=== PATIENT | female | born 1980 | race Caucasian/White ===

== ENCOUNTER 2019-05-09 11:11 | Emergency (ER) | payer OTHER ==
--- NOTE | 2019-05-09 11:36 | ED ---
Abdominal Pain/Female - HPI Summary HPI Summary: Pt. is a 39 y.o female who presents to the ER for constipation x 3 weeks. Pt. notes intermittent cramping and bloating. Pt. notes she is still have small, infrequent bowel movements. She denies fever, vomiting, urinary sxs. Pt. denies change of , stating she just had her normal period and uses protection. Pt. denies past hx. Pt. states she has tried OTC senna without much improvement. Sx hx of c section. Pt. states she had similar sxs a few years ago and was rx "prescription strength on senna" that worked for her. Pt. requesting this rx today. Sxs are mild in severity. No current modifying factors. Pt. denies narcotic use and denies any other OTC medications. - History of Current Complaint Chief Complaint: EDConstipation Stated Complaint: LOW ABD PAIN PER PT Time Seen by Provider: 05/09/19 11:33 Hx Obtained From: Patient Pain Intensity: 4 Allergies/Adverse Reactions: Allergies Allergy/AdvReac Type Severity Reaction Status Date / Time Penicillins Allergy Rash Verified 05/09/19 11:31 Sulfa (Sulfonamide Allergy Dizziness Verified 05/09/19 11:31 Antibiotics) PMH/Surg Hx/FS Hx/Imm Hx Previously Healthy: Yes Psychiatric History: Denies: Hx Anxiety, Hx Attention Deficit Hyperactivity Disorder, Hx Eating Disorder, Hx Depression, Hx Panic Disorder, Hx Post Traumatic Stress Disorder, Hx Inpatient Treatment, Hx Community Mental Health Tx, Hx Schizophrenia, Hx Bipolar Disorder, Hx Suicide Attempt, Hx of Violent Episodes Against Others, Hx Substance Abuse, Other Psychiatric Issues/Disorders Infectious Disease History: No Infectious Disease History: Denies: Traveled Outside the [place] in Last 30 Days - Family History Known Family History: Positive: Non-Contributory - Social History Occupation: Unemployed Lives: Alone Alcohol Use: None Substance Use Type: Reports: None Substance Use Comment - Amount & Last Used: Patient states "none"; however, her chart lists marijuana & cig until pregn Type: Cigarettes Amount Used/How Often: 1/2 pack/day Length of Time of Smoking/Using Tobacco: 5 yrs Have You Smoked in the Last Year: Yes Review of Systems Constitutional: Negative Negative: Fever Cardiovascular: Negative Respiratory: Negative Positive: Abdominal Pain, Other - diarrhea. Negative: Vomiting, Diarrhea, Nausea Genitourinary: Negative All Other Systems Reviewed And Are Negative: Yes Physical Exam Vital Signs On Initial Exam: Initial Vitals Temp Pulse Resp BP Pulse Ox 99.4 F 93 16 110/71 99 05/09/19 11:29 05/09/19 11:29 05/09/19 11:29 05/09/19 11:29 05/09/19 11:29 Procedures - Sedation Patient Received Moderate/Deep Sedation with Procedure: No Diagnostics - Vital Signs Vital Signs Temp Pulse Resp BP Pulse Ox 05/09/19 11:29 99.4 F 93 16 110/71 99 - Laboratory Lab Statement: Any lab studies that have been ordered have been reviewed, and results considered in the medical decision making process. Abdominal Pain Fem Course/Dx - Course Course Of Treatment: Pt. with complaints of constipation x 2 weeks. Pt. notes she is still having small bowel movements and is passing gas. No vomiting. NO hx of bowel obstruction. Benign abd. exam. Pt. requesting rx for senna. Magesium citrate rx as well. Advised to increase fluids and fiber in diet. To call [facility] for close f.u. Advised to return to ER if sxs persist, increased pain, vomiting, or if concerned. Pt. understands and agrees with plan. - Diagnoses Differential Diagnosis: Positive: Bowel Obstruction, Constipation, Irritable Bowel Syndrome Provider Diagnoses: Constipation Discharge ED - Sign-Out/Discharge Documenting (check all that apply): Patient Departure - Discharge Plan Condition: Good Disposition: HOME Prescriptions: Magnesium CITRATE* [Citrate of Magnesia*] 300 ml PO SEE INSTRUCTIONS PRN #1 btl PRN Reason: Constipation Sennosides/Docusate Sodium [Senna-S Tablet] 1 each PO BID #14 tablet Patient Education Materials: Constipation (ED), High Fiber Diet (ED) Referrals: [facility] [Outside] Additional Instructions: Call the [facility] Saturday for a close follow up appointment Medication as directed Increase fluids Increase fiber in diet Return to ER for new or worsening symptoms - Billing Disposition and Condition Condition: GOOD Disposition: Home - Attestation Statements Provider Attestation: I was available for consultation for this patient. I did not evaluate the patient, or participate in any medical decision making or disposition decisions unless I am specifically named in the chart as having consulted on the patient. If I have consulted on the patient, please see my own ED note on the patient encounter. Maile Bernard MD
[2019-05-09 12:00] VITALS: BP 99/54
== END 2019-05-09 12:07 | disposition home or self-care (01) ==
LOC: ED 11:11
DX: K59.00 Constipation, unspecified (principal); F17.210 Nicotine dependence, cigarettes, uncomplicated; Z88.0 Allergy status to penicillin; Z88.2 Allergy status to sulfonamides
CPT/HCPCS: 99281

== ENCOUNTER 2019-05-19 10:42 | Emergency (ER) | payer OTHER ==
--- NOTE | 2019-05-19 11:09 | ED ---
Abdominal Pain/Female - HPI Summary HPI Summary: Patient is a 39 y/o F presenting to the ED for a chief complaint of diffuse non- radiating abdominal pain for the last several weeks. Patient notes abdominal pain that she rates as 10/10 in severity during triage, abdominal bloating, and constipation. She also reports one episode of having blood in the stool. She was previously seen at [facility] on 05/09/19 for similar symptoms and prescribed Senna for 7 days. Patient has not had a bowel movement in the last 2 days since completing the 7-day course of Senna. Patient now believes she has hemorrhoids. Patient denies fever or chills. Patient denies any aggravating or alleviating symptoms. Patient denies having any prior bowel problems, PMHx, PSHx, or FMHx. Patient has a follow up appointment made through [facility] during her last visit to [facility] for 05/27/19. - History of Current Complaint Chief Complaint: EDAbdPain Stated Complaint: CONSTIPATION PROBLEMS PER PT Time Seen by Provider: 05/19/19 10:59 Hx Obtained From: Patient Onset/Duration: Sudden Onset, Still Present Timing: Constant Severity Initially: Severe Severity Currently: Severe Pain Intensity: 10 Pain Scale Used: 0-10 Numeric Location: Diffuse Radiates: No Aggravating Factor(s): Nothing Alleviating Factor(s): Nothing Associated Signs and Symptoms: Positive: Constipation, Blood in Stool, Other: - Positive abdominal bloating; negative chills. Negative: Fever Allergies/Adverse Reactions: Allergies Allergy/AdvReac Type Severity Reaction Status Date / Time Penicillins Allergy Rash Verified 05/19/19 10:49 Sulfa (Sulfonamide Allergy Dizziness Verified 05/19/19 10:49 Antibiotics) PMH/Surg Hx/FS Hx/Imm Hx Previously Healthy: Yes Endocrine/Hematology History: Denies: Hx Diabetes Cardiovascular History: Denies: Hx Hypercholesterolemia, Hx Hypertension Sensory History: Denies: Hx Legally Blind, Hx Deafness Opthamlomology History: Denies: Hx Legally Blind EENT History: Denies: Hx Deafness Psychiatric History: Denies: Hx Anxiety, Hx Attention Deficit Hyperactivity Disorder, Hx Eating Disorder, Hx Depression, Hx Panic Disorder, Hx Post Traumatic Stress Disorder, Hx Inpatient Treatment, Hx Community Mental Health Tx, Hx Schizophrenia, Hx Bipolar Disorder, Hx Suicide Attempt, Hx of Violent Episodes Against Others, Hx Substance Abuse, Other Psychiatric Issues/Disorders - Surgical History Surgical History: None Surgery Procedure, Year, and Place: None Infectious Disease History: No Infectious Disease History: Denies: Traveled Outside the [place] in Last 30 Days - Family History Known Family History: Negative: Diabetes - Social History Occupation: Unemployed Lives: With Family Alcohol Use: None Hx Substance Use: No Substance Use Type: Reports: None Substance Use Comment - Amount & Last Used: Patient states "none"; however, her chart lists marijuana & cig until pregn Hx Tobacco Use: No Smoking Status (MU): Never Smoked Tobacco Type: Cigarettes Amount Used/How Often: 1/2 pack/day Length of Time of Smoking/Using Tobacco: 5 yrs Have You Smoked in the Last Year: Yes Review of Systems Negative: Fever, Chills Positive: Abdominal Pain - Diffuse, Other - Positive constipation, abdominal bloating, one episode of blood in stool Positive: Other - Positive hemorrhoids All Other Systems Reviewed And Are Negative: Yes Physical Exam - Summary Physical Exam Summary: VITAL SIGNS: Reviewed. GENERAL: Patient is a well-developed and nourished female who is lying comfortable in the stretcher. Patient is not in any acute respiratory distress. HEAD AND FACE: Normocephalic and atraumatic. EYES: PERRLA, EOMI x 2, No injected conjunctiva. EARS: Hearing grossly intact. Ear canals and tympanic membranes are WNL. MOUTH: Oropharynx within normal limits. NECK: Supple, trachea is midline, no adenopathy, no JVD. CHEST: Symmetric, no tenderness at palpation. LUNGS: Clear to auscultation bilaterally. No wheezing or crackles. CVS: RRR, S1 and S2 present, no murmurs or gallops appreciated. ABDOMEN: Soft. Positive bowel sounds. No rebound, no guarding, and no masses palpated. No abdominal bruit or pulsations.Abdominal distention, slight tenderness of the lower abdomen. EXTREMITIES: FROM in all major joints, no edema, no cyanosis or clubbing. NEURO: Alert and oriented x 3. No acute neurological deficits. Speech is normal. SKIN: Dry and warm. RECTAL: small external hemorrhoid, no gross blood, no masses, normal sphincter tone. Triage Information Reviewed: Yes Vital Signs On Initial Exam: Initial Vitals Temp Pulse Resp BP Pulse Ox 98.9 F 102 16 150/98 94 05/19/19 10:46 05/19/19 10:46 05/19/19 10:46 05/19/19 10:46 05/19/19 10:46 Vital Signs Reviewed: Yes Procedures - Sedation Patient Received Moderate/Deep Sedation with Procedure: No Diagnostics - Vital Signs Vital Signs Temp Pulse Resp BP Pulse Ox 05/19/19 10:46 98.9 F 102 16 150/98 94 - Laboratory Result Diagrams: 05/19/19 11:43 05/19/19 11:44 Lab Statement: Any lab studies that have been ordered have been reviewed, and results considered in the medical decision making process. - CT Abdomen/Pelvis CT CT Interpretation Completed By: Radiologist Summary of CT Findings: Abdomen/Pelvis CT IMPRESSION: 1. NO EVIDENCE FOR ACUTE FINDING. 2. FINDINGS CONSISTENT WITH OLD GRANULOMATOUS DISEASE. Reviewed by Dr. Dalton. Abdominal Pain Fem Course/Dx - Course Course Of Treatment: The patient is a 39-year-old female who presents to the emergency department with a chief complaint of abdominal pain, chronic constipation. She thinks that she has an intermittent bowel obstruction. Blood test results are without any significant abnormality except for glucose 101. In the ED course the patient was given IV fluids. The pelvic CT impression: no evidence for acute finding. Findings consistent with old granulomatous disease. At this time the patient seems to be comfortable. Therefore, she will be discharged home with a prescription for MiraLAX and Colace. She was recommended to follow with the primary care physician and as needed with a GI doctor. I discussed all the findings and test results including findings of the abdominal and pelvic CT with the patient. Patient was instructed to return to the emergency room immediately if any of the symptoms return or worsen. Plan of care was discussed with the patient who understands and agrees. All questions were answered at the patient's satisfaction. There were no further complaints or concerns. Lung exam before discharge: CTA B/L. Good air exchange. No wheezing or crackles heard. CVS: S1 and S2 present. No murmurs appreciated. Patient is alert and oriented x 3. Patient is hemodynamically stable. Patient will be discharged home to follow up with [facility] in the next 2-3 days. - Diagnoses Provider Diagnoses: Constipation, Lower abdominal pain Discharge ED - Sign-Out/Discharge Documenting (check all that apply): Patient Departure - Discharge - Discharge Plan Condition: Stable Disposition: HOME Prescriptions: Docusate CAP* [Colace Cap*] 100 mg PO BID PRN #14 cap PRN Reason: Constipation Polyethylene Glycol 3350* [Miralax*] 17 gm PO DAILY PRN #12 packet PRN Reason: Constipation Patient Education Materials: Constipation (DC), Abdominal Pain (ED) Referrals: [facility] [Outside] Nikita Costa DO [Doctor of Osteopathy] - Additional Instructions: FOLLOW UP WITH [facility] WITHIN 3 DAYS. RETURN TO THE ED FOR ANY WORSENING OR NEW SYMPTOMS. - Billing Disposition and Condition Condition: STABLE Disposition: Home - Attestation Statements Document Initiated by Scribe: Yes Documenting Scribe: Amanda Goss Provider For Whom Scribe is Documenting (Include Credential): Humberto Dalton MD Scribe Attestation: Amanda Lindsey scribed for Humberto Dalton MD on 05/19/19 at 2056. Scribe Documentation Reviewed: Yes Provider Attestation: The documentation as recorded by the Amanda mitchell accurately reflects the service I personally performed and the decisions made by Humberto velasquez MD Status of Scribe Document: Viewed
[2019-05-19 11:52] LABS: Hematocrit 44 % (35-47); Hemoglobin 14.5 g/dL (12.0-16.0); Mean Corpuscular HGB Conc 33 g/dL (31-36); Mean Corpuscular Hemoglobin 31 pg (27-31); Mean Corpuscular Volume 92 fL (80-97); Mean Platelet Volume 7.2 fL (7.4-10.4); Platelet Count 243 10^3/uL (150-450); Red Blood Count 4.76 10^6 /uL (3.70-4.87); Red Cell Distribution Width 13 % (10-15); White Blood Count 6.7 10^3/uL (3.5-10.8)
[2019-05-19 12:08] LABS: ALT 7 U/L (7-52); AST 12 U/L (13-39); Albumin 4.1 g/dL (3.2-5.2); Albumin/Globulin Ratio 1.4 (1-3); Alkaline Phosphatase 53 U/L (34-104); Anion Gap 6 mmol/L (2-11); BUN/Creatinine Ratio 7.8 (8-20); Blood Urea Nitrogen 5 mg/dL (6-24); C Reactive Protein < 1.00 mg/L (<8.01); CO2 Carbon Dioxide 23 mmol/L (22-32); Calcium 9.2 mg/dL (8.6-10.3); Chloride 110 mmol/L (101-111); EGFR African American 125.7 (>60); EGFR Non-African American 103.9 (>60); Glucose 101 mg/dL (70-100); Potassium 3.7 mmol/L (3.5-5.0); Sodium 139 mmol/L (135-145); Total Protein 7.1 g/dL (6.4-8.9)
[2019-05-19 12:14] LABS: HCG Pregnancy < 0.60 mIU/mL
[2019-05-19 13:41] LABS: ABS Eosinophils 0.1 10^3/ul (0-0.6); ABS Lymphocytes 2.6 10^3/ul (1.0-4.8); ABS Monocytes 0.4 10^3/ul (0-0.8); ABS Neutrophils 3.6 10^3/ul (1.5-7.7); Eosinophil % 1.2 %; Lymphocyte % 38.5 %; Nucleated Red Blood Cells % 0.1
[2019-05-19] MEDS ORDERED: Iohexol 300* (CONTRAST) 10 ML SDV IV ONE (14:05)
[2019-05-19] MEDS ORDERED: NS 0.9% 1000 ML** 1,000 ML IV ONE (14:33)
[2019-05-19 15:46] VITALS: BP 124/66
== END 2019-05-19 15:42 | disposition home or self-care (01) ==
LOC: ED 10:42
DX: K59.00 Constipation, unspecified (principal); R10.30 Lower abdominal pain, unspecified; F17.210 Nicotine dependence, cigarettes, uncomplicated; Z88.0 Allergy status to penicillin; Z88.2 Allergy status to sulfonamides
CPT/HCPCS: 36415; 74177; 80053; 82272; 83605; 83690; 84702; 85025; 86140; 96360; 99282; Q9967

== ENCOUNTER 2019-06-15 21:49 | Emergency (ER) | payer OTHER ==
[2019-06-15 21:54] VITALS: BP 146/95
== END 2019-06-15 22:55 | disposition left against medical advice (07) ==
LOC: ED 21:49
DX: R10.9 Unspecified abdominal pain (principal); Z53.21 Procedure and treatment not carried out due to patient leaving prior to being seen by health care provider

== ENCOUNTER 2019-06-20 13:48 | Emergency (ER) | payer OTHER ==
[2019-06-20] MEDS ORDERED: NS 0.9% 1000 ML** 1,000 ML IV ONE ×2 (13:51→16:16)
[2019-06-20] MEDS ORDERED: Morphine 4 MG/ML VIAL (1 ml) 4 MG/ML VIAL IV ONE (13:51)
[2019-06-20] MEDS ORDERED: Ondansetron INJ* 2 MG/ML VIAL IV ONE (13:52)
--- NOTE | 2019-06-20 13:55 | ED ---
Adult Trauma - HPI Summary HPI Summary: This patient is a 39 year old female presenting to [facility] with a chief complaint of lower abdominal/pelvic pain. She states she fell 1-2 weeks ago and states she has been unable to walk, cross her legs, or drive since the incident. She wants an XR and was seen at [facility] who to,d her to come here. She denies dysuria, hematuria, vaginal discharge. She states inflammation in the pelvic region. - History of Current Complaint Stated Complaint: ABD PAIN PER EMS Hx Obtained From: Patient Mechanism of Injury: Fall - Allergy/Home Medications Allergies/Adverse Reactions: Allergies Allergy/AdvReac Type Severity Reaction Status Date / Time Penicillins Allergy Rash Verified 06/15/19 21:53 Sulfa (Sulfonamide Allergy Dizziness Verified 06/15/19 21:53 Antibiotics) PMH/Surg Hx/FS Hx/Imm Hx Endocrine/Hematology History: Denies: Hx Diabetes Cardiovascular History: Denies: Hx Hypercholesterolemia, Hx Hypertension History: Denies: Hx Renal Disease Sensory History: Denies: Hx Legally Blind, Hx Deafness Opthamlomology History: Denies: Hx Legally Blind Psychiatric History: Denies: Hx Anxiety, Hx Attention Deficit Hyperactivity Disorder, Hx Eating Disorder, Hx Depression, Hx Panic Disorder, Hx Post Traumatic Stress Disorder, Hx Inpatient Treatment, Hx Community Mental Health Tx, Hx Schizophrenia, Hx Bipolar Disorder, Hx Suicide Attempt, Hx of Violent Episodes Against Others, Hx Substance Abuse, Other Psychiatric Issues/Disorders - Surgical History Surgery Procedure, Year, and Place: None - Family History Known Family History: Positive: Non-Contributory Negative: Diabetes - Social History Alcohol Use: None Hx Substance Use: No Substance Use Type: Reports: None Substance Use Comment - Amount & Last Used: Patient states "none"; however, her chart lists marijuana & cig until pregn Hx Tobacco Use: No Smoking Status (MU): Never Smoked Tobacco Type: Cigarettes Amount Used/How Often: 1/2 pack/day Length of Time of Smoking/Using Tobacco: 5 yrs Have You Smoked in the Last Year: Yes Review of Systems Positive: Abdominal Pain Negative: dysuria, discharge, hematuria Positive: Other - Pelvic pain All Other Systems Reviewed And Are Negative: Yes Physical Exam - Summary Physical Exam Summary: Constitutional: Well-developed, Well-nourished, Alert, Cooperative Skin: Warm, Dry HENT: Normocephalic; No Racoons eyes; No king's sign; No abrasion; No contusion; No hemotympanum; No maxilla facial tenderness or instability; Dentition are smooth; No dental trauma; No trismus Eyes: EOM normal, PERRL Neck: Trachea is midline. No stridor; No JVD; No step off; No posterior cervical spine tenderness Cardio: Rhythm regular, rate normal Heart sounds normal; Intact distal pulses. Radial pulses are 2+ and symmetric. Pulmonary/Chest wall: Effort normal; Breath sounds normal; Equal chest rise; No flail segment; No rib tenderness; No sternal tenderness Abd: Soft, Appearance normal. Lower abdominal pain. Mild distention. No palpable pulsatile mass; No Cullens sign; No Vela-Turners sign Musculoskeletal: Full ROM and no tenderness at hips, ankles, shoulders, elbows and knees; No joint swelling; No vertebral body tenderness; No paraspinal tenderness; No step off or deformity of the spine; Pelvis is stable to lateral compression and rock Neuro: Alert, Oriented x3, Strength 5/5 all extremities. : No blood at urethral meatus Psych: Mood and affect Normal Triage Information Reviewed: Yes Vital Signs On Initial Exam: Temp Pulse Resp BP Pulse Ox 99.3 F 92 20 111/64 98 06/20/19 13:53 06/20/19 14:09 06/20/19 14:02 06/20/19 14:08 06/20/19 14:09 Vital Signs Reviewed: Yes Procedures - Sedation Patient Received Moderate/Deep Sedation with Procedure: No Diagnostics - Laboratory Lab Statement: Any lab studies that have been ordered have been reviewed, and results considered in the medical decision making process. - CT Abd/Pel CT Interpretation Completed By: Radiologist Summary of CT Findings: 1. Normal appendix. 2. NO CT apparent acute inflammatory change of the gastrointestinal tract. 3. The volume of urinary bladder measures 1026 ml. Please correlate to any clinical signs and symptoms of neurogenic bladder versus bladder outlet obstruction. 4. Miltly enlarged left ovarian vein measuring 7 mm in diameter that appears to communicate with top normal left periuterine veins measuring 6 mm in diamter. Such an appearance could be seen in the setting of pelvic congestion syndrome which is characterized clinically by episodeic, late day gravidty dependent pelvic pain, dysmenorrhea, nonspecific GI symptoms, varicose viens at the pelvis and lower extremities and dyspareunia. ED Provider has reviewed this report. - Ultrasound No standard instances Ultrasound Interpretation Completed By: Radiologist Summary of Ultrasound Findings: Pelvic: 1. As seen on the prior CT, there are dilated left pelvic veins with Dppler flow, cannot include pelvic congestion syndrome. 2. No other acute sonographic pathology. ED Provider has reviewed this report. Adult Trauma Course/Dx - Course Course Of Treatment: This patient is a 39 year old female presenting to [facility] with a chief complaint of lower abdominal/pelvic pain. CT Abd/Pel reveals 1. Normal appendix. 2. NO CT apparent acute inflammatory change of the gastrointestinal tract. 3. The volume of urinary bladder measures 1026 ml. Please correlate to any clinical signs and symptoms of neurogenic bladder versus bladder outlet obstruction. 4. Miltly enlarged left ovarian vein measuring 7 mm in diameter that appears to communicate with top normal left periuterine veins measuring 6 mm in diamter. Such an appearance could be seen in the setting of pelvic congestion syndrome which is characterized clinically by episodeic, late day gravidty dependent pelvic pain, dysmenorrhea, nonspecific GI symptoms, varicose viens at the pelvis and lower extremities and dyspareunia. Pelvic US could not rule out pelvic congestion syndrome. Patient will follow up with OBGYN. Plan for discharge was discussed with the patient and she was agreeable with this plan. - Diagnoses Provider Diagnoses: Pelvic congestion syndrome Discharge ED - Sign-Out/Discharge Documenting (check all that apply): Patient Departure - Discharge - Discharge Plan Condition: Stable Disposition: HOME Patient Education Materials: Pelvic Pain in Women (ED) Referrals: [facility] [Provider Group] - 3 Days Additional Instructions: Return to ED with new or worsening symptoms. - Attestation Statements Document Initiated by Scribe: Yes Documenting Scribe: Herman Jones Provider For Whom Soy is Documenting (Include Credential): Matteo Hall DO Scribjevon Attestation: Herman Lindsey, andreased for Matteo Hall DO on 06/20/19 at 1508. Status of Scribe Document: Ready
[2019-06-20 14:13] LABS: ABS Basophils 0.1 10^3/ul (0-0.2); ABS Eosinophils 0.1 10^3/ul (0-0.6); ABS Lymphocytes 2.8 10^3/ul (1.0-4.8); ABS Monocytes 0.6 10^3/ul (0-0.8); ABS Neutrophils 5.1 10^3/ul (1.5-7.7); Eosinophil % 1.2 %; Hematocrit 42 % (35-47); Hemoglobin 14.6 g/dL (12.0-16.0); Lymphocyte % 31.7 %; Mean Corpuscular HGB Conc 35 g/dL (31-36); Mean Corpuscular Hemoglobin 32 pg (27-31); Mean Corpuscular Volume 92 fL (80-97); Mean Platelet Volume 6.8 fL (7.4-10.4); Nucleated Red Blood Cells % 0.1; Platelet Count 285 10^3/uL (150-450); Red Blood Count 4.57 10^6 /uL (3.70-4.87); Red Cell Distribution Width 14 % (10-15); White Blood Count 8.7 10^3/uL (3.5-10.8)
[2019-06-20 14:26] LABS: ALT 11 U/L (7-52); AST 11 U/L (13-39); Albumin 3.9 g/dL (3.2-5.2); Albumin/Globulin Ratio 1.4 (1-3); Alkaline Phosphatase 50 U/L (34-104); Anion Gap 7 mmol/L (2-11); BUN/Creatinine Ratio 11.5 (8-20); Blood Urea Nitrogen 7 mg/dL (6-24); C Reactive Protein < 1.00 mg/L (<8.01); CO2 Carbon Dioxide 24 mmol/L (22-32); Calcium 8.6 mg/dL (8.6-10.3); Chloride 108 mmol/L (101-111); EGFR African American 132.8 (>60); EGFR Non-African American 109.8 (>60); Globulin 2.8 g/dL (2-4); Glucose 103 mg/dL (70-100); Potassium 3.6 mmol/L (3.5-5.0); Sodium 139 mmol/L (135-145); Total Protein 6.7 g/dL (6.4-8.9)
[2019-06-20 14:29] LABS: HCG Pregnancy 0.67 mIU/mL
[2019-06-20] MEDS ORDERED: Iohexol 300* (CONTRAST) 10 ML SDV IV ONE (14:58)
[2019-06-20 15:33] LABS: Urine Appearance Clear; Urine Bilirubin Negative (Negative); Urine Blood 1+ (Negative); Urine Color Straw; Urine Glucose Negative (Negative); Urine Ketones Trace (Negative); Urine Nitrite Negative (Negative); Urine Protein Negative (Negative); Urine Specific Gravity 1.015 (1.010-1.030); Urine Urobilinogen Negative (Negative)
[2019-06-20 15:37] LABS: Urine Bacteria Absent (Absent); Urine Red Blood Cell Absent (Absent); Urine Squamous Epithelial Cell Present (Absent); Urine White Blood Cell Trace(0-5/hpf) (Absent)
[2019-06-20] MEDS ORDERED: Ketorolac INJ* 30 MG/ML 1 ML VIAL IV PUSH ONE (16:16)
[2019-06-20 19:03] VITALS: BP 00/00
== END 2019-06-20 18:57 | disposition home or self-care (01) ==
LOC: ED 13:48
DX: N94.89 Other specified conditions associated with female genital organs and menstrual cycle (principal); R10.30 Lower abdominal pain, unspecified; R10.2 Pelvic and perineal pain
CPT/HCPCS: 36415; 74177; 76856; 80053; 81003; 81015; 84702; 85025; 86140; 87086; 96361; 96374; 96375; 99283; J1885; J2270; J2405; Q9967